=== PATIENT | female | born 1935 | race Native Hawaiian/Other Pacific Islander ===

== ENCOUNTER 2017-02-08 10:15 | Outpatient (CLI) | payer OTHER ==
[~2017-02-08 10:15] MED LIST: BISACODYL LAXATI5 MG PO; BUSPIRONE15 MG PO; CALCIUM CITRATE +D OR; ESTR0.6211 PO; GABA100C2 PO; HYDR12.54; LIPITOR40 MG PO; MIRALAX3350 NF OR; MULTIVITAMI1 PO; NEXIUM40 M1 PO; OXYBUTYNIN15 MG PO; ROSU10TA PO; VALS80CA2 PO
== END 2017-02-08 19:03 | disposition home or self-care (01) ==
LOC: CT 10:15
DX: M54.17 Radiculopathy, lumbosacral region (principal)

== ENCOUNTER 2017-04-19 08:42 | Outpatient (CLI) | payer OTHER | END 2017-04-19 09:45 | disposition home or self-care (01) | LOC: RAD 08:42 | DX: M54.5 Low back pain (principal); M25.551 Pain in right hip ==

== ENCOUNTER 2018-04-11 14:34 | Emergency (ER) | payer OTHER ==
[~2018-04-11] VITALS: Ht 167.6 cm; Wt 73.5 kg
[2018-04-11 14:39] VITALS: TEMP 97.9
[2018-04-11 15:56] LABS: PLATELET COUNT 283 K/uL (152-353)
[2018-04-11 16:04] LABS: POTASSIUM 3.5 mmol/L (3.6-5.2)
[2018-04-11 16:37] VITALS: BP 164/70
== END 2018-04-11 16:38 | disposition home or self-care (01) ==
LOC: ED 14:34
PROVIDERS: Family Medicine
DX: S22.32XA Fracture of one rib, left side, initial encounter for closed fracture (principal)
CPT/HCPCS: 36415; 80053; 85027; 99283

== ENCOUNTER 2018-07-08 10:37 | Outpatient (CLI) | payer OTHER | END 2018-07-08 21:23 | disposition home or self-care (01) | LOC: RAD 10:37 | DX: R06.02 Shortness of breath (principal); M54.2 Cervicalgia ==

== ENCOUNTER 2018-07-17 09:34 | Outpatient (CLI) | payer OTHER | END 2018-07-17 21:52 | disposition home or self-care (01) | LOC: MAMMO 09:34 | DX: Z12.31 Encounter for screening mammogram for malignant neoplasm of breast (principal) ==

== ENCOUNTER 2018-07-31 08:52 | Outpatient (CLI) | payer OTHER | END 2018-07-31 19:30 | disposition home or self-care (01) | LOC: US 08:52 | DX: R10.11 Right upper quadrant pain (principal) ==

== ENCOUNTER 2019-07-28 11:10 | Outpatient (CLI) | payer OTHER | END 2019-07-28 19:33 | disposition home or self-care (01) | LOC: RAD 11:10 | DX: M54.2 Cervicalgia (principal) ==

== ENCOUNTER 2019-08-12 09:54 | Outpatient (CLI) | payer OTHER | END 2019-08-12 22:26 | disposition home or self-care (01) | LOC: MRI 09:54 | DX: M54.12 Radiculopathy, cervical region (principal) ==

== ENCOUNTER 2019-12-28 21:37 | Emergency (ER) | payer OTHER ==
[~2019-12-28] VITALS: Ht 167.6 cm; Wt 73.5 kg
[2019-12-28] MEDS ORDERED: NORGEST/ETH1 PO (22:19)
[2019-12-28] MEDS ORDERED: ROPI5T PO (22:21)
[2019-12-28] MEDS ORDERED: TIROSINT25 MCG PO (22:23)
[2019-12-28 22:34] LABS: PLATELET COUNT 223 K/uL (152-353)
[2019-12-28 22:39] LABS: POTASSIUM 3.7 mmol/L (3.6-5.2)
[2019-12-29 01:20] VITALS: BP 113/55; TEMP 98.6
== END 2019-12-29 01:20 | disposition home or self-care (01) ==
LOC: ED 21:37
PROVIDERS: Family Medicine
DX: N39.0 Urinary tract infection, site not specified (principal)
CPT/HCPCS: 36415; 80053; 81000; 85027; 87077; 87086; 87088; 87186; 96360; 96365; 96375; 99284; J0696; J2405

== ENCOUNTER 2020-12-01 09:36 | Outpatient (CLI) | payer OTHER ==
[~2020-12-01 09:36] MED LIST changes: +NORGEST/ETH1 PO; +ROPI5T PO; +TIROSINT25 MCG PO
== END 2020-12-01 21:48 | disposition home or self-care (01) ==
LOC: RAD 09:36
PROVIDERS: ATTEND Nurse Practitioner
DX: M16.11 Unilateral primary osteoarthritis, right hip (principal)

== ENCOUNTER 2021-07-12 09:16 | Outpatient (CLI) | payer OTHER | END 2021-07-12 19:16 | disposition home or self-care (01) | LOC: RAD 09:16 | PROVIDERS: ATTEND Nurse Practitioner | DX: R07.89 Other chest pain (principal) ==

== ENCOUNTER 2021-07-17 16:19 | Emergency (ER) | payer OTHER ==
[~2021-07-17] VITALS: Ht 167.6 cm; Wt 73.5 kg
[2021-07-17 18:17] LABS: PLATELET COUNT 291 K/uL (152-353)
[2021-07-17 23:26] LABS: PLATELET COUNT 246 K/uL (152-353)
[2021-07-17 23:49] VITALS: BP 142/58; TEMP 99.2
== END 2021-07-17 23:57 | disposition home or self-care (01) ==
LOC: ED 16:19
PROVIDERS: Emergency Medicine Emergency Medical Services
DX: K59.09 Other constipation (principal); K64.4 Residual hemorrhoidal skin tags; E86.0 Dehydration; Z79.899 Other long term (current) drug therapy; Z51.81 Encounter for therapeutic drug level monitoring
CPT/HCPCS: 36415; 80053; 81000; 82150; 82272; 83605; 83690; 85027; 85610; 87040; 96360; 96361; 96365; 99284; J1956

== ENCOUNTER 2021-07-27 09:18 | Outpatient (CLI) | payer OTHER | END 2021-07-27 20:03 | disposition home or self-care (01) | LOC: MAMMO 09:18 | PROVIDERS: ATTEND Nurse Practitioner | DX: Z12.31 Encounter for screening mammogram for malignant neoplasm of breast (principal) ==